=== PATIENT | female | born 1995 | race Asian ===

== ENCOUNTER 2017-10-03 06:36 | Inpatient (IN) | payer OTHER ==
--- NOTE | 2017-10-03 07:47 | PN ---
L&D Outpatient: Visit - Reproductive Information Estimated Due Date: 10/05/17 Gestational Age: 39 Weeks and 5 Days : 2 Para: 1 - Reason for Visit Visit Reason: IUP @ 39+5 weeks gestation, reporting contractions overnight and now Q 5-10 minutes. Spotting last night, no leaking of fluid - Antepartal Records Antepartal Record: Reviewed, Uncomplicated - Patient History Patient History Significant: No L&D Outpatient: ROS - Review of Systems Constitutional: Uncomfortable CV Complaint: No Respiratory: Shortness of Breath: No Gastrointestinal: No Nausea/Vomiting, Normal Bowel Movement Genitourinary: Bleeding - Brownish spotting since last night, No Dysuria, No Leaking Fluid Musculoskeletal: Contractions Movement: Normal L&D Outpatient: Exam Vitals - Most Recent: BP 118/67 T 98.0 RR 16 HR 91 O2 100 - Cervical Exam Cervical Exam: 4-5cm/70%/vertex -1 - Abdominal Exam Abdomen Exam: Non-Tender, Fundal Height Consistent with Dates - Membranes Membrane Status: Intact - Ultrasound/Biophysical Profile Ultrasound Status: Not Done L&D Outpatient: EFM - External Monitor Findings Baseline Heart Rate: 135 External Monitor Findings: Accelerations Present, No Pattern of Variable or Late Decelerations, Variability Moderate External Monitor Findings Comment: Contractions Q 10 min L&D Outpatient: Asses/Plan Assessment: IUP @ 39+5 weeks gestation, IBOW, no evidence metabolic acidemia. Early vs prodromal labor - Discharge Diagnosis Discharge Diagnosis: Other - Observe for active labor, admit or discharge as indicated Plan: Follow Up: - To be determined
--- NOTE | 2017-10-03 09:02 | HP ---
General Information - General Information Maternal Age: 22 Grav: 2 Para: 1 SAB: 0 IEA: 0 Estimated Due Date: 10/05/17 Determined By: LMP Gestational Age in Weeks and Days: 39 Weeks and 5 Days Maternal Blood Type and Rh: B Positive - Results this Serology/RPR Result: Non-Reactive Rubella Result: Immune HBsAg Result: Negative HIV Result: Negative GBS Culture Result: Negative Past Medical History Delivery History: Hx Uncomplicated Vaginal Delivery Delivery History Comment: 12/2014 8lbs 4oz male. Delivered in [place], [place] Pertinent Past Surgical History: None Pertinent Family History: Non-Contributory - Antepartal Records Antepartal Records: Reviewed, Uncomplicated Review of Systems Constitutional: Uncomfortable - with UCs CV Complaint: No Respiratory: Shortness of Breath: No Gastrointestinal: No Nausea/Vomiting, Normal Bowel Movement Genitourinary: No Dysuria, No Bleeding, No Leaking Fluid Musculoskeletal: Contractions Neurological: No Headache, No Visual Changes Movement: Normal Exam Allergies/Adverse Reactions: Allergies No Known Allergies Allergy (Verified 10/03/17 07:38) BP 118/67 HR 91 RR 16 T 98.0 O2Sat 100% on RA - Measurements Height: 5 ft 0.5 in Weight: 151 lb Weight in lbs: 151 Body Mass Index (BMI): 29.0 Pre- Weight: 126 lb Weight Gained This : 25 lbs and 0 ozs - Exam Abdomen: No Upper Quadrant Pain Breast: Breast Exam Deferred CVA: No CVA Tenderness Extremities: No Edema Heart: Normal Rhythm/Heart Sounds HEENT: No Significant Findings Lungs: Clear Bilaterally Rectal: Rectal Exam Deferred Reflexes: DTR 2+ Thyroid: No Thyromegaly - Abdominal Exam Abdomen Exam: Non-Tender, Fundal Height Consistent with Dates - Ultrasound/Biophysical Profile Ultrasound Status: Not Done Targeted Exam Findings See L&D Outpatient Visit Provider Note for Findings: Yes Estimated Weight: 8lbs by Rut Cervical Exam: 4cm Effacement: 70% Station: -1 Presenting Part: Vertex Membrane Status: Intact Sterile Speculum Exam: Not done Bleeding/Discharge: Bloody Show EFM Findings - External Monitor Findings Baseline Heart Rate: 140 External Monitor Findings: Accelerations Present, No Pattern of Variable or Late Decelerations, Variability Moderate, Baseline Stable External Monitor Findings Comment: No evidence of metabolic acidemia. Ok to use intermittent monitoring Contractions: Regular, Moderate, 45-90 Seconds Contraction Frequency: q 6 min Assessment/Plan - Reason for Visit Reason for Visit: IUP at 39-5/7 in early active labor - Obstetrical Risk Factors Risk Factors Comment: None - Plan Plan: Observe, Early Labor Plan Comment: Pt desires minimal intervention. Expectant management for now. Anticipate - Date/Time of Admission Date of Admission: 10/03/17 Time of Admission: 09:01
[2017-10-03] MEDS ORDERED: OXYTOCIN* 10 UNITS/ML 1 ML VIAL IM ONE (12:34)
[2017-10-03] MEDS ORDERED: Glycerin ADULT SUPP PR PRN (12:34)
[2017-10-03] MEDS ORDERED: Witch Hazel PAD* JAR TOPICAL PRN (12:34)
[2017-10-03] MEDS ORDERED: Dibucaine 1% 28.35 GM TUBE PR PRN (12:34)
--- NOTE | 2017-10-03 12:34 | PROCNOTE ---
[facility] OB: Delivery Note - Delivery A Date of : 10/03/17 Time of : 11:54 [place] Sex: Female Weight at : 8 lb 6 oz Score 1 Minute: 9 Score 5 Minutes: 9 Gestational Age in Weeks and Days at Delivery: 39 Weeks and 5 Days Delivery Method: Spontaneous Vaginal Labor: Spontaneous Amniotic Fluid: Clear Estimated Blood Loss: 500 Anesthesia/Analgesia: None Delivered By: Mona Morrison - Nursery Level of Nursery: Regular/Bedside - Perineum Perineal Injury: None/Intact Perineal Repair: None - Additional Delivery Notes Additional Delivery Notes: Pt admitted in labor. Amniotomy to clear fluid at 7cm per pt request with expected progression to complete. Strong urge to push at 8cm despite bedside support and counseling. Pushed x 29 min (but only x 2 contractions once fully). liveborn female. Slow, controlled delivery of head. LOT to OP. Shoulders followed with strong maternal push. [place] vigorous with spontaneous cry. HR> 110bpm. Delivered to maternal abdomen. Cord clamped x 2 and cut by FOB when pulsations ceased. to warmer per mother's request. Spontaneous delivery intact placenta. Membranes complete. Fundus slow to firm with massage. 10 units IM pitocin given. Fundus firmed to massage and remained firm. Perineum intact. No repair needed. Of note after delivery cervical prolapse noted protruding from introitus. Caution advised when doing fundal massage. Will continue to monitor. EBL 500mL. At time of note mother and in stable condition. Planning to breast feed.
[2017-10-03] MEDS ORDERED: Ibuprofen TAB* 600 MG ONE (12:42)
[2017-10-03] MEDS: Ibuprofen TAB* 600 MG PO PRN (12:44)
[2017-10-03] MEDS: Docusate CAP* 100 MG PO SCH ×2 (14:00→20:04)
[2017-10-03] MEDS ORDERED: Ammonia Inhalant* 1 EA AMP ONE (16:00)
[2017-10-03] MEDS: Acetaminophen TAB* 325 MG PO PRN (20:03)
[2017-10-03] MEDS: Simethicone TAB* 80 MG TAB.CHEW PO SCH (20:04)
[2017-10-04] MEDS: Simethicone TAB* 80 MG TAB.CHEW PO SCH (00:41)
[2017-10-04] MEDS: Acetaminophen TAB* 325 MG PO PRN ×2 (01:28→06:14)
[2017-10-04] MEDS: Ibuprofen TAB* 600 MG PO PRN ×3 (01:29→22:46)
[2017-10-04 07:08] LABS: ABS Basophils 0.1 10^3/ul (0-0.2); ABS Eosinophils 0.2 10^3/ul (0-0.6); ABS Lymphocytes 2.1 10^3/ul (1.0-4.8); ABS Monocytes 1.2 10^3/ul (0-0.8); ABS Neutrophils 11.8 10^3/ul (1.5-7.7); ABS Nucleated RBC 0 10^3/ul; Eosinophil % 1.3 % (0-6); Hematocrit 28 % (35-47); Hemoglobin 8.9 g/dl (12.0-16.0); Lymphocyte % 13.6 % (25-47); Mean Corpuscular HGB Conc 32 g/dl (31-36); Mean Corpuscular Hemoglobin 21 pg (27-31); Mean Corpuscular Volume 67 fL (80-97); Mean Platelet Volume 8.4 um3 (7.4-10.4); Nucleated Red Blood Cells % 0.1; Platelet Count 204 10^3/ul (150-450); Red Blood Count 4.15 10^6/ul (4.00-5.40); Red Cell Distribution Width 16 % (10.5-15); White Blood Count 15.4 10^3/ul (3.5-10.8)
[2017-10-04] MEDS: Ferrous Gluconate TAB* 324 MG TAB PO SCH ×2 (09:40→22:46)
[2017-10-04] MEDS: Docusate CAP* 100 MG PO SCH ×3 (09:41→22:46)
[2017-10-05] MEDS: Acetaminophen TAB* 325 MG PO PRN (07:53)
[2017-10-05 08:53] VITALS: BP 116/63
[2017-10-05] MEDS: Ferrous Gluconate TAB* 324 MG TAB PO SCH (09:01)
[2017-10-05] MEDS: Docusate CAP* 100 MG PO SCH (09:02)
== END 2017-10-05 11:43 | disposition home or self-care (01) | DRG 560 ==
LOC: MCHOBOUT 06:36 → MCHOB 09:04
PROVIDERS: ADMIT Midwife; ATTEND Midwife
PROC: 4A1HXCZ Monitoring of Products of Conception, Cardiac Rate, External Approach (ICD-10-PCS; principal; 2017-10-03)
PROC: 10907ZC Drainage of Amniotic Fluid, Therapeutic from Products of Conception, Via Natural or Artificial Opening (ICD-10-PCS; 2017-10-03)
PROC: 10E0XZZ Delivery of Products of Conception, External Approach (ICD-10-PCS; 2017-10-03)
DX: O90.81 Anemia of the puerperium (principal); O90.89 Other complications of the puerperium, not elsewhere classified; N81.2 Incomplete uterovaginal prolapse; Z3A.39 39 weeks gestation of pregnancy; Z37.0 Single live birth
CPT/HCPCS: 36415; 85025; A9270-GY

== ENCOUNTER 2018-03-03 17:52 | Emergency (ER) | payer OTHER ==
--- NOTE | 2018-03-03 18:34 | ED ---
Throat Pain/Nasal Congestion - HPI Summary HPI Summary: Patient is a 22-year-old female who presents emergency department for nasal congestion, dizziness, headache, sore throat times greater than one week. Patient denies past medical history. She denies sick contacts. Patient's friend is present and is interpreting. Patient denies abdominal pain, dysuria, vomiting, diarrhea. She has been taking [id number] nasal spray an allergy medication with little improvement. Symptoms are mild in severity. No current modifying factors. - History of Current Complaint Chief Complaint: EDFluSymptoms Time Seen by Provider: 03/03/18 18:17 Hx Obtained From: Patient, Family/Heel Stainer, Women'S Apparel Salesperson - Allergies/Home Medications Allergies/Adverse Reactions: Allergies Allergy/AdvReac Type Severity Reaction Status Date / Time No Known Allergies Allergy Verified 03/03/18 17:58 PMH/Surg Hx/FS Hx/Imm Hx Previously Healthy: Yes Infectious Disease History: No Infectious Disease History: Denies: Traveled Outside the [place] in Last 30 Days - Family History Known Family History: Positive: Non-Contributory - Social History Occupation: Unemployed Lives: With Family Alcohol Use: None Substance Use Type: Reports: None Smoking Status (MU): Never Smoked Tobacco Review of Systems Constitutional: Negative Negative: Fever, Chills Eyes: Negative Positive: Sore Throat, Nasal Discharge Cardiovascular: Negative Positive: Cough - dry cough . Negative: Shortness Of Breath Gastrointestinal: Negative Negative: Abdominal Pain, Vomiting, Diarrhea Genitourinary: Negative Negative: dysuria Musculoskeletal: Negative Skin: Negative Positive: Headache All Other Systems Reviewed And Are Negative: Yes Physical Exam Triage Information Reviewed: Yes Vital Signs On Initial Exam: Initial Vitals Temp Pulse Resp BP Pulse Ox 98.4 F 95 16 117/61 99 03/03/18 17:56 03/03/18 17:56 03/03/18 17:56 03/03/18 17:56 03/03/18 17:56 Vital Signs Reviewed: Yes Appearance: Positive: Well-Appearing - Pt. sitting in chair in NAD. Friend present. Skin: Positive: Warm, Dry Head/Face: Positive: Normal Head/Face Inspection Eyes: Positive: Normal, EOMI, JNUE, Conjunctiva Clear ENT: Positive: Pharyngeal erythema, TMs normal, Sinus tenderness - frontal and maxillary. Negative: Tonsillar swelling, Tonsillar exudate, Hoarse voice Neck: Positive: Supple, Nontender. Negative: Nuchal Rigidity Respiratory/Lung Sounds: Positive: Clear to Auscultation, Breath Sounds Present Cardiovascular: Positive: Normal, RRR Neurological: Positive: Normal, CN Intact II-III Psychiatric: Positive: Affect/Mood Appropriate Diagnostics - Vital Signs Vital Signs Temp Pulse Resp BP Pulse Ox 03/03/18 17:56 98.4 F 95 16 117/61 99 - Laboratory Lab Statement: Any lab studies that have been ordered have been reviewed, and results considered in the medical decision making process. EENT Course/Dx - Course Course Of Treatment: Pt. presenting for sinius congestion, dizziness, h/a for over one week. She is afebrile and well appearing. Strep and flu and negative. Given ongoing sxs will treat for sinusitis with augmentin. Naproxen also rx. Advised to continue nose spray at home. Close f.u with PCP and return to ER if sxs change or worsen. Pt. understands and agrees with plan. - Differential Diagnoses Differential Diagnoses: Periodontic Abscess, Sinusitis, Tonsilitis, URI/ Bronchitis - Diagnoses Provider Diagnoses: Sinusitis Discharge - Sign-Out/Discharge Documenting (check all that apply): Patient Departure - Discharge Plan Condition: Good Disposition: HOME Prescriptions: Amoxicillin/Clavulanate TAB* [Augmentin TAB 875*] 875 mg PO BID #20 tab Naproxen [Naproxen 500 mg tab] 500 mg PO BID #20 tablet Patient Education Materials: Sinusitis (ED) Referrals: Crista Bell CUSTOMER CONTACT SPECIALIST [Primary Care Provider] - Additional Instructions: Schedule a follow up appointment with PCP if symptoms persist Take medication as directed Increase fluids and rest Continue over the counter nose spray as directed Return to ER if symptoms change or worsen - Billing Disposition and Condition Condition: GOOD Disposition: Home
[2018-03-03] MEDS ORDERED: Amoxicillin/Clavulanate TAB* 875 MG PO ONE (18:55)
[2018-03-03] MEDS ORDERED: Naproxen TAB* 250 MG PO ONE (18:55)
[2018-03-03 19:14] VITALS: BP 114/60
== END 2018-03-03 19:13 | disposition home or self-care (01) ==
LOC: ED 17:52
DX: J32.9 Chronic sinusitis, unspecified (principal)
CPT/HCPCS: 87651; 99282; A9270-GY

== ENCOUNTER 2018-08-05 13:18 | Emergency (ER) | payer OTHER ==
[2018-08-05 13:27] VITALS: BP 121/73
--- OUTSIDE RECORDS SUMMARY | 2018-08-05 13:41 | XMS REPORT | Continuity of Care Document ---
:1995 External Reference #:[id number] Author Name Dee Barker CNM Address [address] [place] [address] Care Team Providers Name Role Phone Abhijit Bolaños M.D. 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 Payers Date Identification Numbers Payment Provider Subscriber Policy Number: [id number] [employer] PayID: [id number] [address] [place] [address] Policy Number: [id number] Medicaid MD Si Si Po PayID: [id number] [address] [place] [address] Advance Directives Description No Information Available Problems Description No Active Problems Family History Date Family Member(s) Observation Comments Father due to Unknown Causes () Mother A&W First Son A&W First Daughter A&W First Brother A&W First Sister A&W Second Sister A&W Paternal Grandfather due to Unknown Causes () Paternal Grandmother due to Unknown Causes () Maternal Grandfather due to Unknown Causes () Maternal Grandmother due to Unknown Causes () Social History Type Date Description Comments Sex Unknown Education Highest level completed, 12th grade Marital Status Single Lives With Boyfriend Lives With Son Lives With Daughter Pets None Occupation Homemaker Cigarette Use Does Not Smoke Cigarettes ETOH Use Does Not Drink Alcohol Recreational Drug Use Does Not Use Drugs Seat Belt/Car Seat Always uses seat belt STD's No STD History Allergies, Adverse Reactions, Alerts Description No Known Drug Allergies Medications Medication Date Status Form Strength Qnty SIG Indications Ordering Provider Wang 07/12/ Active Patches 150-35mcg 3unit Place patch Dee 2019 Weekly /24HR s on skinLucero leave on for , CNM one week, then remove and discard. Continue for 3 weeks, take 1 week off, then resume. 05/05/ Hx Tablets 1-20mg-mc 63tab take one Dee 2018 - g s pill by Lucero 07/12/ mouth each , [facility] 2019 day No Active 11/26/ Hx Unknown Medications 2017 - 2017 Depo-Provera 11/26/ Hx Suspension 150mg/ml 1unit bring Isela 2018 - s medication Chanel, with you to [facility] 2019 office appointment for injection Iron (Ferrous 05/15/ Hx Tablets 256(28Fe) 90tab 1 by mouth Crista Gluconate) 2018 - mg s every day Jump, 11/26/ ANP-C 2018 Dha 05/10/ Hx Capsules 200mg 90cap 1 by mouth Crista 2018 - s every day Jump, any generic ANP-C 2017 will be ok Immunizations CPT Code Status Date Vaccine Lot # [id number] Given 07/26/2017 Tetnus, Diptheria Toxoids And Acellular Pertussis, [id number] PT > 7Yrs Old Vital Signs Date Vital Result Comment 07/12/2018 9:06am BP Systolic 104 mmHg BP Diastolic 62 mmHg Height 60.5 inches 5'0.50" Weight 127.00 lb BMI (Body Mass Index) 24.4 kg/m2 Last Menstrual Period 1596937 2 Parity 2 11/26/2017 11:00am BP Systolic 108 mmHg BP Diastolic 66 mmHg Height 60.5 inches 5'0.50" Weight 132.00 lb BMI (Body Mass Index) 25.4 kg/m2 Last Menstrual Period 9957418 2 Parity 2 05/10/2017 2:04pm BP Systolic 106 mmHg BP Diastolic 64 mmHg Height 60.5 inches 5'0.50" Weight 126.00 lb BMI (Body Mass Index) 24.2 kg/m2 Last Menstrual Period 9027677 2 Parity 1 Results Test Date Facility Test Result H/L Range Note Laboratory test 09/14/2017 [facility] B Strep SEE RESULT 1 [place] [address] Culture Screen BELOW [phone] Laboratory test 07/05/2017 [facility] Glucose 1 HR 109 mg/dL N 70-160 2, 3 [place] [address] Post Prandial [phone] CBC With No Diff 07/05/2017 [facility] White Blood 11.7 10^3/uL High 3.5-10.8 [place] [address] Count [phone] Red Blood Count 4.83 10^6/uL N 4.0-5.4 Hemoglobin 9.8 g/dL Low 12.0-16.0 Hematocrit 33 % Low 35-47 Mean Corpuscular Volume 68 fL Low 80-97 Mean Corpuscular Hemoglobin 20 pg Low 27-31 Mean Corpuscular HGB Conc 30 g/dL Low 31-36 Red Cell Distribution Width 17 % High 10.5-15 Platelet Count 240 10^3/uL N 150-450 Mean Platelet Volume 9.1 um3 N 7.4-10.4 Urine Culture And 06/04/2017 [facility] Urine Culture SEE RESULT 4 [place] [address] BELOW [phone] Quad Screen 05/10/2017 [facility] Interpretation SEE NOTE 5 Risk For NTD (Osb) 1:3200 Risk For Down Based On Age 1:1078 Risk For Down Based On SCR 1:2393 <1:270 Trisomy 18 Risk Based On SCR LESS THAN 1:5000 <1:100 6 Afp,Serum 79.4 NG/ML Adjusted Mom 1.44 7 HCG,Serum 21.412 IU/mL Mom 0.78 Estriol,Free 1.24 NG/ML Mom 0.77 Inhibin A 396 pg/mL Mom 2.20 Comment SEE NOTE 8 Date Of 1995 MARIA TERESA 10/05/2017 MARIA TERESA Determined By LMP Gestational Age 18.9 WEEKS Weight 126 LBS Race =A Insulin Dependent Diabetic NO Cigarette Smoker NOT PROVIDED Repeat Sample NO Number Of Fetuses 1 History Of NTD NO Date Of Draw 05/10/2017 [employer] [facility] SEE NOTE 9 Hemoglobinopathy 05/10/2017 [facility] Erythrocyte Count 5.48 Mill/uL High 3.80-5.10 Evaluation Hemoglobin 11.0 g/dL Low 11.7-15.5 Hematocrit 37.6 % 35.0-45.0 MCV 68.6 FL Low 80.0-100.0 MCH 20.1 pg Low 27.0-33.0 RDW 17.5 % High 11.0-15.0 Hemoglobin A 93.5 % Low >96.0 Hemoglobin F 1.3 % <2.0 Hemoglobin A2 5.2 % High 1.8-3.5 Interpretation see note 10 PNL 05/10/2017 [facility] Rubella Immune Immune 11 , 12 [place] [address] Screen IU/mL [phone] Hemoglobin A1c 4.7 % N 4.0-5.6 13 Hepatitis B Surface Antigen Nonreactive Nonreactive 14 Syphillis Igg W/Reflex RPR Nonreactive Nonreactive 15 CBC With No 05/10/2017 [facility] White Blood 12.5 10^3/uL High 3.5-10.8 [place] [address] Count [phone] Red Blood Count 5.55 10^6/uL High 4.0-5.4 Hemoglobin 10.9 g/dL Low 12.0-16.0 Hematocrit 37 % N 35-47 Mean Corpuscular Volume 67 fL Low 80-97 Mean Corpuscular Hemoglobin 20 pg Low 27-31 Mean Corpuscular HGB Conc 29 g/dL Low 31-36 Red Cell Distribution Width 18 % High 10.5-15 Platelet Count 313 10^3/uL N 150-450 Mean Platelet Volume 10 um3 N 7.4-10.4 Type And Screen 05/10/2017 [facility] Patient Blood [place] [address] [phone] Antibody Screen NEGATIVE HIV 1/2 AB 05/10/2017 [facility] HIV 1 2 Nonreactive Nonreactive 16 [place] [address] Antibody [phone] Lead 05/10/2017 [facility] Lead 2.1 g/dL 0.0-4.9 17 [place] [address] [phone] Submitting Laboratory 18 Parvovirus B19 05/10/2017 [facility] Parvovirus Positive Negative Igg [place] [address] (B19) IgG [phone] Antibody Parvovirus (B19) IgM Antibody Negative Negative Parvovirus Interpretation See Comment 19 GC/Chlamydia Dna 05/10/2017 [facility] Chlamydia Negative [place] [address] trachomatis Rna [phone] Neisseria gonorrhoeae (GC) Rna Negative Negative Laboratory test 05/10/2017 [facility] Cytology SEE RESULT BELOW [address] [place] [address] [phone] 1 SEE RESULT BELOW Name: JOYCELYN WEBBER SI : [address]: Morelia Chanel [facility] Acct: [id number] Unit: [id number] AGE: 22 Location: [facility] Re09/14/17 SEX: F Status: REG REF SPEC: [id number] BLANCA: 09/14/17 [facility] DR: Morelia Chanel [facility] REQ: [id number] RECD: 09/17/17 STATUS: COMP _ SOURCE: CER/VAG/RE SPDESC: ORDERED: Grp B Strp Scrn QUERIES: Is patient penicillin allergic and/or sensitivities needed? N Provider Requisition # [id number] Procedure Result Reported Site Group B Strep Culture Screen Final 09/19/17- 1135 ML Group B Strep Screen Negative * ML - Main Lab . END OF REPORT DEPARTMENT OF PATHOLOGY, [address] [place] [address] Oscar Constantino M.D. Director [facility] # [id number] 2 [id number] 4 SEE RESULT BELOW Name: BURAK WEBBER : [address]: Wilmar Badillo MD Acct: [id number] Unit: [id number] AGE: 22 Location: [facility] Re06/04/17 SEX: F Status: REG REF SPEC: [id number] BLANCA: 06/04/17-1509 [facility] [address]: Wilmar Badillo MD REQ: [id number] RECD: 06/05/17 STATUS: COMP _ SOURCE: URINE [place]: ORDERED: Urine Culture COMMENTS: [id number] Urine Source: Random Procedure Result Reported Site Urine Culture Final 06/06/17- 1209 ML No Growth (<1,000 CFU/mL) * ML - MAIN LAB ([facility]) . END OF REPORT * ML=Testing performed at Main Lab DEPARTMENT OF PATHOLOGY, [address] [place] [address] Oscar Constantino M.D. Director [facility] # [id number] 5 SCREEN NEGATIVE FOR OPEN NTD, DS AND TRISOMY 18. 6 LESS THAN 1:5000 7 ADJUSTED AFP MOM INTERPRETIVE CUTOFFS: <2.50 ADJUSTED MOM <1.90 ADJUSTED MOM FOR INSULIN-DEPENDENT DIABETES <4.00 ADJUSTED MOM FOR TWINS <3.50 ADJUSTED MOM FOR TWINS INSULIN-DEPENDENT DIABETES <4.50 ADJUSTED MOM FOR TRIPLETS <4.00 ADJUSTED MOM FOR TRIPLETS INSULIN-DEPENDENT DIABETES 8 PERFORMANCE OF MATERNAL SERUM AFP, HCG, ESTRIOL, AND DIMERIC INHIBIN A PROVIDES A USEFUL SCREENING TEST FOR DETECTION OF OPEN NEURAL TUBE DEFECTS AND SOME CHROMOSOMAL ABNORMALITIES. IT SHOULD BE NOTED THAT NORMAL RESULTS CAN NEVER GUARANTEE THE OF A NORMAL BABY AND THAT 2 TO 3 PERCENT OF [place] HAVE SOME TYPE OF PHYSICAL OR MENTAL DEFECT, MANY OF WHICH ARE UNDETECTABLE THROUGH ANY KNOWN DIAGNOSTIC TECHNIQUE. THIS IS A SCREENING TEST, NOT A DIAGNOSTIC TEST. THIS RISK ASSESSMENT REPORT IS BASED IN PART ON DEMOGRAPHIC DATA PROVIDED BY THE ORDERING PHYSICIAN. PLEASE NOTIFY THE LAB PROMPTLY IF ANY DATA IS INCORRECT. FOR ASSISTANCE WITH RECALCULATIONS, PLEASE CALL YOUR LOCAL [facility] AT . FOR ASSISTANCE WITH INTERPRETATION OF THESE RESULTS, PLEASE CALL [phone]. 9 --- Reviewed by: Parminder Stone MD 10 PRESUMPTIVE HETEROZYGOUS FOR BETA-THALASSEMIA Elevated HbA2 in an individual with microcytosis is most likely due to beta thalassemia trait (BTT). HbF may be elevated in a third to a half of individuals with BTT. High A2 and low MCV are surrogate markers for BTT and do not distinguish among the 200+ alleles responsible for beta thalassemia. In general, the greater the degree of microcytosis the more likely the allele is beta zero type. This, however, is not foolproof because of interacting factors such as iron deficiency, liver disease, hemolysis, alpha thalassemia and hereditary persistence of hemoglobin. Knowing the exact mutation, i.e. whether it is beta zero or beta plus (severe or mild) is important for genetic counseling and predicting clinical disease. If indicated, beta globin gene sequencing is available ([facility] test code 73524). This test identifies the vast majority of beta thalassemia alleles that are caused by point mutations and small insertions/deletions within the beta globin gene (both coding and non-coding areas) and flanking sequences. Alpha thalassemia (AT) may coexist with BTT. It is particularly important to exclude AT in persons of [place] ancestry in whom two alpha gene deletion in cis has been identified in their partner. Individuals of Mediterranean and ancestry may also have two alpha gene deletion in cis but these mutations are less frequently seen in those populations. If indicated, testing for alpha thal- assemia is available from [facility]. (Alpha thalassemia common mutations: Test code 02184) Results were reviewed and interpreted by Carmine Castaneda M.D. If additional information is needed, please call [phone]. 11 [id number] 12 [id number] 13 Therapeutic target for the treatment of diabetes mellitus patients is <7% HBA1C, and in selective patients <6.0%. Please refer to [place] [employer] diabetic care guidelines for further information. 14 [id number] 15 Warning: A positive result is not useful for establishing a diagnosis of syphilis. In most situations, such a result may reflect a prior treated infection; a negative result can exclude a diagnosis of syphilis except for incubating or early primary disease. 16 It is recognized that currently available assays for the detection of antibodies to HIV-1 and/or HIV-2 may not detect all infected individuals. HIV antibodies may be undetectable in some stages of the infection and in some clinical conditions. The performance of this assay has not been established for populations of infants or children. Assayed by Chemiluminescence Microparticle Immunoassay on the Siemens Advia Centaur CP. Values obtained with different methods or kits cannot be used interchangeably.The diagnostic specificity of the ADVIA Centaur 1/O/2 Enhanced assay in the low risk population was 99.90% (6052/6058) with a 95% confidence interval of 99.78 to 99.96%. 17 ADDITIONAL INFORMATION Testing performed by Inductively Coupled Plasma-Mass Spectrometry (ICP-MS). This test was developed and its performance characteristics determined by [facility] in a manner consistent with CLIA requirements. This test has not been cleared or approved by the U.S. Food and Drug Administration. 18 Test Performed by: [facility] - [address] [address] 19 RESULT: Results suggest past infection. ADDITIONAL INFORMATION This test has been modified from the talkback host's instructions. Its performance characteristics were determined by [facility] in a manner consistent with CLIA requirements. This test has not been cleared or approved by the U.S. Food and Drug Administration. Test Performed by: [facility] [address] [place] [address] 20 SEE RESULT BELOW Name: LAWANDAJOYCELYN HIRSCH : [address]: Crista Estrella Acct: [id number] Unit: [id number] AGE: 22 Location: [facility] Re05/10/17 SEX: F Status: REG REF SPEC: [id number] BLANCA: 05/10/17-[address]: Crista Estrella REQ: [id number] RECD: 05/11/171143 STATUS: SOUT _ ORDERED: TP IMAGE ANAL COMMENTS: [id number] Negative for Intraepithelial lesion or Malignancy A. Ectocervical/Endocervical Specimen Adequacy: Satisfactory of evaluation Transformation zone component identified Patient Information: HPV: Thin Layer Pap Test w/reflex to high risk HPV RNA testing when ASCUS Actual Specimen Date: 05/10/17 Last Menstrual Date: 12/29/16 ?: Y Other Pertinent History: Prior Elsewhere Prior Unknown Signed (signature on file) MELINDA Flood(ASCP) 05/14 1549 This Pap test was evaluated with the assistance of the ThinPrep Test Imaging System. Due to cytologic findings at the pearl stringer microscope, comprehensive manual rescreening by a Cutter [employer] Paster Press Clippings may be required. The Pap Smear is a screening test designed to aid in the detection of premalignant and malignant conditions of the uterine cervix. It is not a diagnostic procedure and should not be used as the sole means of detecting cervical cancer. Both false- positive and false- negative reports do occur. Depending on your risk status, a Pap smear should be obtained and evaluated every 1-3 years. END OF REPORT * ML=Testing performed at Main Lab DEPARTMENT OF PATHOLOGY, [address] [place] [address] Oscar Constantino M.D. Director [facility] # [id number] Procedures Date Code Description Status 11/30/2017 21599 Injection Intramuscular Or Subcutaneous Completed 10/03/2017 96937 Obstetric Care Routine Completed 09/14/2017 77191 Echography Uterus Limited Completed 05/10/2017 53733 Echography Uterus Complete Completed Encounters Description No Information Available Plan of Treatment No Information Available
--- NOTE | 2018-08-05 13:50 | ED ---
HPI Febrile Illness - HPI Summary HPI Summary: Patient is a 23 y/o female who presents to the ED c/o cough. Her symptoms began 5 days ago, and include cough, congestion, rhinorrhea, sore throat, abdominal pain, DURON, and fever. Patient denies any CP. Her current pain is rated as a 4/10 in severity, and is made worse with coughing. She denies any smoking. No pertinent PMHx. - History of Current Complaint Chief Complaint: EDThroatPain Time Seen by Provider: 08/05/18 13:38 Hx Obtained From: Patient Onset/Duration: Started Days Ago - 5, Still Present Timing: Constant Current Severity: Moderate Pain Intensity: 4 Pain Scale Used: 0-10 Numeric Aggravating Factors: Other: - coughing Associated Signs and Symptoms: Cough, Headache, Sore Throat - Allergy/Home Medications Allergies/Adverse Reactions: Allergies Allergy/AdvReac Type Severity Reaction Status Date / Time No Known Allergies Allergy Verified 08/05/18 13:27 PMH/Surg Hx/FS Hx/Imm Hx Endocrine/Hematology History: Denies: Hx Diabetes Cardiovascular History: Denies: Hx Hypertension Infectious Disease History: No Infectious Disease History: Denies: Traveled Outside the [place] in Last 30 Days - Family History Known Family History: Negative: Cardiac Disease - Social History Alcohol Use: None Hx Substance Use: No Substance Use Type: Reports: None Hx Tobacco Use: No Smoking Status (MU): Never Smoked Tobacco Review of Systems Positive: Fever Positive: Sore Throat, Nasal Discharge, Other - congestion Negative: Chest Pain Positive: Cough Positive: Abdominal Pain Positive: Headache All Other Systems Reviewed And Are Negative: Yes Physical Exam - Summary Physical Exam Summary: Appearance: Well appearing, no pain distress Skin: warm, dry, reflects adequate perfusion Head/face: normal Eyes: EOMI, JUNE ENT: erythema of pharynx Neck: supple, non-tender Respiratory: CTA, breath sounds present Cardiovascular: RRR, pulses symmetrical Abdomen: non-tender, soft Musculoskeletal: normal, strength/ROM intact Neuro: normal, sensory motor intact, A&Ox3 Triage Information Reviewed: Yes Vital Signs On Initial Exam: Initial Vitals Temp Pulse Resp BP Pulse Ox 99.8 F 111 18 121/73 98 08/05/18 13:24 08/05/18 13:24 08/05/18 13:24 08/05/18 13:24 08/05/18 13:24 Vital Signs Reviewed: Yes Diagnostics - Vital Signs Vital Signs Temp Pulse Resp BP Pulse Ox 08/05/18 13:24 99.8 F 111 18 121/73 98 - Laboratory Lab Statement: Any lab studies that have been ordered have been reviewed, and results considered in the medical decision making process. Course/Dx - Course Course Of Treatment: Patient is a 23 y/o female who presents to the ED c/o cough , congestion, rhinorrhea, sore throat, abdominal pain, DURON, and fever. A physical exam revealed pharyngeal erythema. Final dx are bacterial pharyngitis and atypical bronchitis. Patient is discharged with prescriptions for Zithromax and Claritin. She is agreeable with this plan. - Febrile Illness Differential Diagnoses: Other: - pharyngitis/bronchitis - Diagnoses Provider Diagnoses: Bacterial pharyngitis, Bronchitis Discharge - Sign-Out/Discharge Documenting (check all that apply): Patient Departure - Discharge Patient Received Moderate/Deep Sedation with Procedure: No - Discharge Plan Condition: Stable Disposition: HOME Prescriptions: Azithromycin TAB* [Zithromax TAB (Z-KAHLIL) 250 mg #6 tabs] 2 tab PO .TODAY, THEN 1 DAILY #1 kahlil Loratadine/Pseudoephedrine [Claritin-D 24 Hour 10-240 mg] 1 tab PO ONCE #7 tab Patient Education Materials: Pharyngitis (ED), Acute Bronchitis (ED) Referrals: Crista Bell, DBAS [Primary Care Provider] - 3 Days Additional Instructions: RETURN TO THE ED WITH ANY NEW OR WORSENING SYMPTOMS. - Billing Disposition and Condition Condition: STABLE Disposition: Home - Attestation Statements Document Initiated by Scribe: Yes Documenting Scribe: Abbey Jordan Provider For Whom Linda is Documenting (Include Credential): Russel Fernandez MD Scribe Attestation: Abbey Menchaca, scribed for Russel Fernandez MD on 08/05/18 at 1405. Scribe Documentation Reviewed: Yes Provider Attestation: The documentation as recorded by the Abbey jj accurately reflects the service I personally performed and the decisions made by Russel oneil MD Status of Scribe Document: Viewed
== END 2018-08-05 14:08 | disposition home or self-care (01) ==
LOC: ED 13:18
DX: J02.8 Acute pharyngitis due to other specified organisms (principal); J40 Bronchitis, not specified as acute or chronic
CPT/HCPCS: 99282

== ENCOUNTER 2023-11-27 22:35 | Inpatient (IN) ==
[2023-11-27] MEDS ORDERED: Lidocaine 1% VIAL 10 MG/ML 30 ML VIAL INJ PRN (23:52)
[2023-11-28 01:18] LABS: Urine Benzodiazepine Screen None Detected (None Detect)
[2023-11-28 01:20] LABS: Urine Opiates Screen None Detected (None Detect)
[2023-11-28 01:37] LABS: Urine Cannabinoids Screen None Detected (None Detect)
[2023-11-28 02:10] LABS: ABS Eosinophils 0.1 10^3/uL (0.0-0.5); ABS Lymphocytes 2.3 10^3/uL (1.0-4.8); ABS Monocytes 0.7 10^3/uL (0.0-0.9); ABS Neutrophils 6.8 10^3/uL (1.5-7.6); ABS Nucleated RBC 0.01 10^3/ul; Anisocytosis 1+; Eosinophil % 0.7 %; Hematocrit 39.4 % (35-45); Hemoglobin 12.4 g/dL (11.5-14.3); Mean Corpuscular Hemoglobin 20.6 pg (27-33); Mean Corpuscular Hgb Conc 31.5 g/dL (31-36); Mean Corpuscular Volume 65.4 fL (80-97); Mean Platelet Volume 9.5 fL (7.5-11.2); Microcytosis 2+; Nucleated Red Blood Cells % 0.1 %/100WBC (0.0-0.8); Platelet Count 238 10^3/uL (150-450); Polychromasia 1+; Red Blood Count 6.02 10^6/uL (3.63-4.92); Red Cell Distribution Width 16.1 % (12-17); White Blood Count 9.9 10^3/uL (3.8-11.8)
[2023-11-28] MEDS: Oxytocin in LR 20,000 MILLI.UNIT/1,000 ML BAG IV SCH (05:02)
[2023-11-28] MEDS ORDERED: Glycerin ADULT 2.4 gm SUPP PR PRN (05:13)
[2023-11-28] MEDS: Dibucaine 1% OINT 28.35 GM TUBE PR PRN (05:37)
[2023-11-28] MEDS: Oxytocin in LR 20,000 MILLI.UNIT/1,000 ML BAG IV ONE (05:37)
[2023-11-28] MEDS: Witch Hazel PAD JAR TOPICAL PRN (05:37)
[2023-11-28] MEDS ORDERED: Lactated Ringers 1000 ml BAG 1,000 ML IV SCH (06:00)
[2023-11-28] MEDS: Lactated Ringers 1000 ml BAG 1,000 ML IV SCH (20:45)
[2023-11-28] MEDS: Buffered Lidocaine 1% SYRIN 1 ml INTRADERM ONE (20:45)
[2023-11-28] MEDS: Lactated Ringers 1000 ml BAG 1,000 ML IV ONE (20:45)
[2023-11-29 06:27] LABS: ABS Basophils 0.1 10^3/uL (0.0-0.1); ABS Eosinophils 0.1 10^3/uL (0.0-0.5); ABS Lymphocytes 2.5 10^3/uL (1.0-4.8); ABS Monocytes 0.8 10^3/uL (0.0-0.9); Hematocrit 33.3 % (35-45); Hemoglobin 10.3 g/dL (11.5-14.3); Lymphocyte % 19.8 %; Mean Corpuscular Hemoglobin 20.4 pg (27-33); Mean Corpuscular Hgb Conc 30.9 g/dL (31-36); Mean Corpuscular Volume 65.9 fL (80-97); Mean Platelet Volume 9.1 fL (7.5-11.2); Platelet Count 202 10^3/uL (150-450); Red Blood Count 5.05 10^6/uL (3.63-4.92); Red Cell Distribution Width 16.1 % (12-17); White Blood Count 12.5 10^3/uL (3.8-11.8)
[2023-11-30 07:38] VITALS: BP 107/74
== END 2023-11-30 15:08 | disposition home or self-care (01) | DRG 560 ==
LOC: MCHOBOUT 22:35 → MCHOB 23:48
PROVIDERS: ADMIT Midwife; ATTEND Midwife